=== PATIENT | male | born 1970 | race Caucasian/White ===

== ENCOUNTER 2021-03-29 17:48 | Emergency (ER) | payer BC, SELFPAY ==
[2021-03-29 18:07] VITALS: BP 132/75; PULSE 87; RESP 16; TEMP 36.2; O2SAT 98
--- NOTE | 2021-03-29 19:36 | ED.URI ---
HPI - URI/Sore Throat General Chief Complaint: Upper Respiratory Infection Stated Complaint: Sore Throat History of Present Illness HPI Narrative: This a 50-year-old male comes in complaining of having a 2-week history of sore throat states that he has had of some cough and congestion . Patient states he may need to be tested for SARS and strep patient denies any fever nausea vomiting and/or diarrhea Related Data Home Medications Medication Instructions Recorded Confirmed sertraline 50 mg PO DAILY 03/29/21 03/29/21 Allergies Allergy/AdvReac Type Severity Reaction Status Date / Time Penicillins Allergy Unknown WAS CHILD Verified 03/29/21 18:36 Review of Systems Review of Systems: CONSTITUTIONAL: Denies fever, chills, or sweats. EYES: Denies visual changes, redness, or discharge. ENT: Denies rhinorrhea, congestion, reports sore throat, or otalgia. CARDIOVASCULAR:Denies chest pain, palpitations, or edema. RESPIRATORY: Denies cough or dyspnea. GASTROINTESTINAL: Denies abdominal pain, nausea, vomiting, or diarrhea. GENITOURINARY: Denies dysuria or hematuria. SKIN:[Denies rash or itching. MUSCULOSKELETAL:Denies back pain, joint pain, or myalgia. NEUROLOGIC: Denies headache, numbness, or weakness. PSYCHIATRIC:Denies anxiety or depression PMF Family History Family History (Updated 06/23/15 @ 15:03 by DOCTOR UNKNOWN) Mother Family history of malignant neoplasm Father Acute myocardial infarction Social History Social History Alcohol intake: current Comments At time as signature, I have reviewed and agree with nursing past medical, social, surgical and family history. Please see nursing chart for further information. There is no relevant family history pertinent to the presenting complaint. Exam Narrative: GENERAL:Well-appearing, well-nourished, and in no acute distress. HEAD:Normocephalic, atraumatic. EYES: PERRLA and EOMI. ENT: Nares clear, no rhinorrhea or epistaxis. Mucous membranes moist. Pharyngeal erythema NECK: Supple. CHEST: Clear to auscultation. No respiratory distress. HEART: Regular rate and rhythm. ABDOMEN: Soft, nontender, nondistended, normal active bowel sounds. EXTREMITIES: Normal range of motion. No edema. SKIN: Warm, dry, no rash. NEURO: No focal deficits. Alert and oriented x3. Negative SARS test negative strep test patient chews daily Course [employer]/PA Physician Supervision Patient requesting antibiotics at this time and will fill antibiotics as needed Vital Signs Vital signs: Vital Signs Temperature 97.2 F L 03/29/21 18:07 Pulse Rate 87 03/29/21 18:07 Respiratory Rate 16 03/29/21 18:07 Blood Pressure 132/75 03/29/21 18:07 Pulse Oximetry 98 03/29/21 18:07 Temperature 97.2 F L 03/29/21 18:07 Pulse Rate 87 03/29/21 18:07 Respiratory Rate 16 03/29/21 18:07 Blood Pressure 132/75 03/29/21 18:07 Pulse Oximetry 98 03/29/21 18:07 MDM - URI/Sore Throat Lab Data Labs: Lab Results 03/29/21 Range/Units 19:00 POC SARS CoV-2 Ag Negative (Negative) Strep Screen Presumptive Negative *(Reference Range: Negative)* Discharge Plan Discharge Clinical Impression: Upper respiratory infection Qualifiers: URI type: unspecified viral URI Qualified Code(s): J06.9 - Acute upper respiratory infection, unspecified Pharyngitis Qualifiers: Pharyngitis/tonsillitis etiology: unspecified etiology Qualified Code(s): J02.9 - Acute pharyngitis, unspecified Patient Disposition: Home, Self-Care Condition: Stable Instructions: Antibiotic Form, Pharyngitis (ED) Additional Instructions: your strep test today was negative. A throat culture will be sent to the laboratory for further testing. IF the test is positive, you will receive a phone call within 48 hours and an appropriate antibiotic will be initiated at that time. You will not receive a phone call if the test is negativ
== END 2021-03-29 19:42 | disposition home or self-care (01) ==
PROVIDERS: Emergency Provider Nurse Practitioner Family; PCP Emergency Medicine
DX: J06.9 Acute upper respiratory infection, unspecified (principal); J02.9 Acute pharyngitis, unspecified; Z20.822 Contact with and (suspected) exposure to COVID-19
CPT/HCPCS: 87081; 87426; 87880; 99213; C9803; G0463

== ENCOUNTER 2022-07-31 15:13 | Emergency (ER) | payer BC, SELFPAY ==
[2022-07-31 15:51] VITALS: BP 124/76; PULSE 85; RESP 20; TEMP 36.2; O2SAT 99
--- NOTE | 2022-07-31 16:37 | ED.NAVMDI ---
HPI - Nausea/Vomiting/Diarrhea General Chief complaint: Nausea/Vomiting/Diarrhea Stated complaint: Abdominal Pain/Nausea/ Vomiting/Diarrhea Source: patient Mode of arrival: ambulatory Limitations: no limitations History of Present Illness HPI Narrative: 52-year-old male presents to [facility] with complaints of nausea vomiting and diarrhea for the past 36 hours. Patient reports he feels that his symptoms are improving. Patient reports that he was able to keep water down earlier today without vomiting. Patient reports that his son recently started with similar symptoms. Patient reports that he has been taking [id number] Pepto-Bismol with minimal relief. MD elicited complaint: nausea, vomiting and diarrhea Onset (ago): day(s) (1-2) Associated nausea: Yes Associated abdominal pain: No Location of pain: none Exacerbating factors: eating Relieving factors: none Associated symptoms: denies other symptoms Related Data Home Medications Medication Instructions Recorded Confirmed sertraline 50 mg tablet 50 mg PO DAILY 03/29/21 03/29/21 Allergies Allergy/AdvReac Type Severity Reaction Status Date / Time Penicillins Allergy Unknown WAS CHILD Verified 03/29/21 18:36 Review of Systems Constitutional: Constitutional: Denies chills, Denies fatigue and Denies fever(s) ENT: Denies dizziness, Denies nasal congestion and Denies sore throat Cardiovascular: Cardiovascular: Denies chest pain Respiratory: Respiratory: Denies cough, Denies dyspnea and Denies wheezing Gastrointestinal: Gastrointestinal: Denies abdominal pain, Reports diarrhea, Reports nausea and Reports vomiting Genitourinary: Genitourinary: Denies dysuria Integumentary/Breasts: Skin/Breast: Denies rash Neurologic: Denies vertigo, Denies dizziness and Denies syncope Allergic/Immunologic: Allergic/Immunologic: Denies lip swelling, Denies throat swelling and Denies tongue swelling PMFSH Family History Family History Mother Family history of malignant neoplasm Father Acute myocardial infarction Social History Social History Alcohol intake: current Comments At time of signature, I agree with nursing past medical, surgical, social and family history. There is no relevant family history pertinent to the presenting complaint. Exam Const: General: healthy appearing, no acute distress and alert Nutritional Appearance: well nourished Orientation/consciousness: patient oriented x3 Limitations: no limitations HENMT: Head: normal to inspection Mouth: Yes lip normal and Yes moist mucous membranes Throat: posterior oropharynx normal and uvula midline Eyes: Conjunctivae: conjunctivae normal Neck: Neck: normal visual inspection Resp: Effort & Inspection: normal respiratory effort and not labored Auscultation: clear to auscultation bilaterally, no crackles, no rales, no rhonchi and no wheezes Cardio: Rate: regular rate Rhythm: regular rhythm Heart sounds: no murmurs GI: Inspection: non-distended GI Palp: Yes Soft to palpation, No Tenderness to palpation present (GI), No Guarding due to palpation present (GI) and No Rigid due to palpation Skin: General skin exam: normal color Rashes: no rashes Neuro: General: patient oriented x3 Speech: normal speech Psych: Affect: normal affect Attitude: cooperative Course Course Level of Care: Express Care Visit Vital Signs Vital signs: Vital Signs Temperature 36.2 C L 07/31/22 15:51 Pulse Rate 85 07/31/22 15:51 Respiratory Rate 20 07/31/22 15:51 Blood Pressure 124/76 07/31/22 15:51 Pulse Oximetry 99 07/31/22 15:51 Oxygen Delivery Room Air 07/31/22 15:51 Temperature 36.2 C L 07/31/22 15:51 Pulse Rate 85 07/31/22 15:51 Respiratory Rate 20 07/31/22 15:51 Blood Pressure 124/76 07/31/22 15:51 Pulse Oximetry 99 07/31/22 15:51 Oxygen Delivery Room Air
== END 2022-07-31 16:48 | disposition home or self-care (01) ==
PROVIDERS: Emergency Provider Nurse Practitioner Family; PCP Emergency Medicine
DX: B34.9 Viral infection, unspecified (principal)
CPT/HCPCS: 99213; G0463

== ENCOUNTER 2024-09-28 13:14 | Emergency (ER) | payer BC, SELFPAY ==
--- OUTSIDE RECORDS SUMMARY | 2024-09-28 13:17 | XMS_ITS | Clinical Summary ---
Author Organization [facility] Address [address] [place] [address] Care Team Providers Care Rod Greaser Name Role Phone Trey Goff MD Primary Care Provider Allergies Active Allergy Reactions Criticality Noted Date Comments Penicillins Rash Medium 03/13/2019 Medications sertraline (ZOLOFT) 50 mg tablet Take 1 tablet by mouth daily 01/08/[address] (VOLTAREN) 75 mg EC tablet TAKE 1 TABLET BY MOUTH TWICE DAILY 60 tablet 05/15/2019 Active Active Problems No known active problems Surgical History Surgery Date Site/Laterality Comments SKIN SURGERY Family History Medical History Relation Name Comments Cancer Mother Relation Name Status Comments Mother Social History Tobacco Use Types Packs/Day Years Used Date Smoking Tobacco: Former Personal Safety Answer Date Recorded Getting School Help Needed Not on file 10/27 Sex and Gender Information Value Date Recorded Sex Assigned at Not on file Legal Sex Male 12:13 PM CDT Gender Identity Not on file Sexual Orientation Not on file Obstetrics History Last Filed Vital Signs Vital Sign Reading Time Taken Comments Blood Pressure 126/87 03/13/2019 2:44 PM CDT Pulse 78 03/13/2019 2:44 PM CDT Temperature - - Respiratory Rate - - Oxygen Saturation - - Inhaled Oxygen Concentration - - Weight 108.7 kg (239 lb 9.6 oz) 03/13/2019 2:44 PM CDT Height 182.9 cm (6') 03/13/2019 2:44 PM CDT Body Mass Index 32.5 03/13/2019 2:44 PM CDT Plan of Treatment Not on file Insurance [employer] [place] [employer] [place] Care Teams Rod Greaser Relationship Specialty Start Date End Date Trey Goff MD [address] [place] [address] PCP - General Family Medicine 01/08/19
--- OUTSIDE RECORDS SUMMARY | 2024-09-28 13:17 | XMS_ITS | Referral Summary ---
Author Organization [facility] Address [address] [place] [address] Care Team Providers Care Lime Supervisor Name Role Phone Trey Goff MD Primary Care Provider Allergies Active Allergy Reactions Criticality Noted Date Comments Penicillins Rash Medium 03/13/2019 Medications sertraline (ZOLOFT) 50 mg tablet Take 1 tablet by mouth daily 01/08/[address] (VOLTAREN) 75 mg EC tablet TAKE 1 TABLET BY MOUTH TWICE DAILY 60 tablet 05/15/2019 Active Active Problems No known active problems Social History Tobacco Use Types Packs/Day Years Used Date Smoking Tobacco: Former Personal Safety Answer Date Recorded Getting School Help Needed Not on file 10/27 Sex and Gender Information Value Date Recorded Sex Assigned at Not on file Legal Sex Male 12:13 PM CDT Gender Identity Not on file Sexual Orientation Not on file Last Filed Vital Signs Vital Sign Reading [...] Plan of Treatment Not on file [place] [employer] [place] Care Teams Lime Supervisor Relationship Specialty Start Date End Date Trey Goff MD [address] [place] [address] PCP - General Family Medicine 01/08/19
--- OUTSIDE RECORDS SUMMARY | 2024-09-28 13:17 | XMS_ITS | Continuity of Care Document ---
Author Organization [facility] Address [address] [place] [address] Phone Care Team Providers Care Merchandising Representative Name Role Phone Miguel Arcos DO Unavailable Unavailable Advance Directives Directive Yes / No Effective Date File Name No Information Encounters Encounter Description Practice Location Reason(s) For Visit Diagnoses Date Provider Providers Copied on Encounter [facility], [address], [place], [place], [id number], [place] tel:[phone] [facility] No Information Isrrael Cody. [address] [place], [address], [place]. tel: [phone] Family History Family Member Type Diagnosis Age At Onset No Information Payers Payer name Insurance type Covered constitution party ID Authoriza tion(s) No Information Social History Type Description Quantity Date Captured Comments Sex Male Smoking Status No Information Chief Complaint And Reason For Visit No Information Reason For Referral Reason For Referral No Information History Of Present Illness Encounter Date Complaint History Of Prese nt Illness No Information Functional Status Date Functional Assessmen t No Information Instructions Date Instruction Additional Infor mation No Information Assessments Type Assessment Date No Information Patient Care Teams Name Effective Dates (start - stop) Status Members No Information
--- OUTSIDE RECORDS SUMMARY | 2024-09-28 13:17 | XMS_ITS | Data Portability ---
Author Organization [place] [facility], Main Office Address [address] [place] [address] Care Team Providers Care Sulfide Head Operator Name Role Phone COLETTE EVELINA Primary Care Provider EVELINA ALVARENGA Referring Provider [phone] Assessment Encounter Date Assessment Date Assessment LastModified by Organization Details LastModified Time 02/06/2024 02/06/2024 53-year-old male presents for follow-up of his bilateral knee arthritis. He was treated with a course of anti-inflammatori es and physical therapy. He feels like therapy actually made it worse and aggravated things. His left side is currently worse than the right, rated as 6/10. He is still taking meloxicam. He has varus alignment of his left knee. Tenderness palpation over the medial joint line as well as over the patellofemoral joint. Range motion 0-100 and 30 with crepitus. Neurovascular intact. We discussed that the next step would be to consider cortisone injection. He wanted to proceed and tolerated that well. He just wanted to do it for his left side. We will him follow up as needed. We discussed that he can get the shots every 3-4 months as needed, and after that we can consider doing a gel injection. He is in agreement with the plan. Not available 02/07/2024 19:29:47 05/21/2024 05/21/2024 53-year-old male presents for follow-up of his left knee osteoarthritis. We previously treated him conservatively with anti-inflammatori es, physical therapy, and cortisone injection. The injection gave him very temporary relief, but now he has recurrence of pain. He currently rates pain as 8/10. He has limited walking. He wants to consider surgery for joint arthroplasty He has varus alignment of his left knee. Tenderness palpation over the medial joint line as well as over the patellofemoral joint. Range motion 0-130 with crepitus. Neurovascular intact. X-rays demonstrates medial and patellofemoral arthritis He has failed conservative management for his knee osteoarthritis and wants to proceed with TKA. He currently chews tobacco and we discussed smoking cessation and the need for him to be off nicotine prior to doing surgery. We will order a nicotine test for him and he can take it 30 days after he quits. After he gets a negative result, we will see him back in the office to discuss surgery and give him his preoperative info. He is in agreement with the plan. Not available 05/23/2024 10:23:07 07/16/2024 07/16/2024 54-year-old male presents for follow-up of his left knee. He has a history of knee osteoarthritis failing conservative management. We had previously discussed surgery for total knee arthroplasty, but he was still on nicotine that point. He has since quit smoking and has a negative nicotine test. He is here for his preoperative appointment. He currently rates pain 7/10. varus alignment of his left knee. Tenderness palpation over the medial joint line as well as over the patellofemoral joint. Range motion 0-130 with crepitus. Neurovascular intact. We will proceed with TKA given his osteoarthritis failing conservative management. Risks, benefits, and alternatives to surgery were discussed with the patient. Risks include but are not limited to pain, stiffness, infection, bleeding, blood clot, injury to other structures including nerves or blood vessels, need for future surgery, and anesthesia risks. We discussed the goal of surgery is to improve symptoms but there is no guarantee of improvement and it is possible the patient's condition is worse after surgery. Patient agreed and would like to proceed. Not available 07/16/2024 16:26:24 09/19/2024 09/19/2024 54-year-old patient presents today for 1st postop follow-up after left knee total arthroplasty on 09/09/[address] Colmenares. He states he is doing well overall, 5/10 pain. Still taking Dowell as needed as well as naproxen and aspirin. He is using crutches but states when he is at home he uses a walker. He has not started physical therapy. Physical exam: Antalgic gait. Incision is clean dry and intact without signs and symptoms of infection. Bruising and edema noted around knee. Some tenderness with palpitation. Range of motion 5-90. Sensation intact throughout. We discussed incisional care and when to call the office if there are changes. We will order physical therapy to help with range of motion and gait training. We discussed starting to wean off of assisted devices as he feels more comfortable. We will renew his Dowell script. He can continue to take the anti-inflammatori es, ice, and elevate. We will see him back in 4 weeks with x-rays to check his progress. He may call before then with any issues. Not available 09/19/2024 12:32:44 09/26/2024 09/26/2024 54-year-old patient presents today for incisional recheck after left knee told her arthroscopy on 09/09/2024. At his appointment last week we removed his Aquacel dressing. He states that a few days later he started to develop a rash around the incision where the adhesive was touching his skin. He presents today to have the rash looked at. He also states he does not like taking the hydrocodone and would like to try ibuprofen. Physical exam: Erythema and dry skin where adhesive was located on the dressing. It does not touch the incision site. It is not painful with touch. Patient states it is not itching or causing discomfort. We discussed that he is having a reaction to the adhesive in the dressing. It is possible it will get worse before it gets better and that blisters or flaking skin may develop. He can take an antihistamine as needed. We do not recommend applying antihistamine creams near the incision. We discussed when to call the office if it continues to get worse. For pain we will order 800mg Ibuprofen. We will see him back October 15 for recheck, or sooner if needed. Not available 09/26/2024 11:11:48 Plan of Treatment Reminders Order Date Submit Date Provider Last Modified By Organization Details Last Modified Time Details Appointments Post-Op 10 2024 10:20A M Yoandy Colmenares MD Not available Not available Not available Lab cotinine, quantitat josé luis, urine 2023 024 [email or web address] [facility] ([facility] [address] [place], [address], 06/25/2024 08:17:01 Referral physical therapist referral - Please contact patient to schedule 2024 025 [facility], [address] [place], [address], 09/23/2024 16:40:47 Procedures injection /aspirati on joint/bur sa (PROC) 2023 024 [email or web address] In-Office Order, Internal Use Only DO Not Attach Compendium DO Not Attach Compendium, Do Not Delete/merge, [id number] 02/06/2024 14:12:46 Surgeries None recorded. Imaging None recorded. Medication Orders ibuprofen 800 mg tablet 2024 [id number], [address], [place], [id number], 09/26/2024 09:12:01 hydrocodo ne 5 mg-acetam inophen 325 mg tablet 2024 025 [id number], [address], [place], [id number], 09/19/2024 12:33:43 Kenalog 10 mg/mL suspensio n for injection [address] [id number], [address] , [place], [place], [id number], 02/07/2024 14:42:54 Marcaine (PF) 0.5 % (5 mg/mL) injection solution [address] [id number], [address] , [place], [place], [id number], 02/07/2024 14:42:54 Patient TargetsNo targets recorded. Patient InstructionsNo instructions recorded. Reason for Referral Physical Therapist Referral for Osteoarthritis of left knee joint Please contact patient to schedule Referring Physician: Daisy Mock, Orthopedic Surgery, Encounter Date: 09/19/2024 Results Created Date Observation Date Name Description Value Unit Range Abnormal Flag Note LastModifiedBy Organization Detail LastModifiedTime 09/09/1909/09/2024 XR, knee, 1 or 2 view No observ ation record ed. [email or web address] [address] [place], [address], 09/09/2024 17:29:58 Result Notes None recorded. Problems Name Problem SNOMED Code Status Onset Date Resolution Date Notes Provider Name and Address Organization Details Recorded Time Pain of bilateral knee joints 7769488879193 04 Active 2023 PACO [place], [place] [facility] [facility] [employer] 4 10:32:21 Pain of right knee joint 5542268054514 00 Active 2023 Rohini moreno [employer] [facility] 4 14:11:30 Pain of left knee joint 4021777931451 07 Active 2023 Rohini moreno, [employer] [facility] 4 14:11:35 Nicotine dependence 21695569 Active 2023 Rohini moreno, [employer] [facility] [employer] 4 16:04:06 Osteoarthri tis of left knee joint 3184662852807 09 Active 2024 PACO Franklin, [employer] [facility] 5 09:29:39 Problem Notes None recorded. Procedures Surgical History Date Name Laterality Status Provider Name and Address Organization Details Recorded Time 5 Knee Replacement completed PACO Franklin [employer] 09/18/2024 08:44:16 4 Ortho - Cortisone Injection completed Yoandy Colmenares MD [address] [facility], [facility] [address], [place], [address], [employer] 02/07/2024 19:29:58 Imaging Results Imaging Date Name Status LastModified by Organiz ation Details LastModified Time 09/09/2024 XR, knee, 1 or 2 view completed [email or web address] [facility] [address], [place], [address], 09/09/2024 17:29:58 Procedure Notes None recorded. Medical Equipment None Reported. Allergies Allergen ID Allergen Name Allergen Category Reaction Reaction Severity Criticality Documentation Date Start Date Code Code System Note Provider Name and Address Organization Details Recorded Time [address]23 penicilla mine medicatio n Not available Not available Not available 12/19/2023 7975 RxNorm PACO [place], [place] [facility] 10:30:30 Medications Name Sig Start Date Stop Date Status Note LastModified by Organization Details LastModified Time cyclobenzap rine 10 mg tablet TAKE 1 TABLET BY MOUTH EVERY 8 HOURS NEEDED FOR MUSCLE SPASM active Not Available Not Available No t Available ibuprofen 800 mg tablet Take 1 tablet 3 times a day by oral route. 2024 active Not Available Not Available Not Avai lable ofloxacin 0.3 % eye drops INSTILL 2 DROPS IN THE LEFT EYE FOUR TIMES DAILY FOR 7 DAYS 12/18 completed Not Available Not Available Not Available hydrocodone 5 mg-acetamin ophen 325 mg tablet TAKE 1 TABLET BY MOUTH EVERY 6 HOURS active Not Available Not Available No t Available senna 8.6 mg tablet TAKE 2 TABLETS BY MOUTH EVERY NIGHT AT BEDTIME active Not Available Not Available No t Available meloxicam 15 mg tablet TAKE 1 TABLET BY MOUTH EVERY DAY active Not Available Not Available No t Available naproxen 250 mg tablet TAKE 2 TABLETS BY MOUTH EVERY 12 HOURS active Not Available Not Available No t Available tramadol 50 mg tablet TAKE 1 TABLET BY MOUTH EVERY 4 HOURS NEEDED FOR PAIN active Not Available Not Available No t Available Kenalog 10 mg/mL suspension for injection in office 2023 active ND: 0003- 0494- 20 Not Available Not Available Not Available BD Luer-Shahla Syringe 3 mL 25 gauge x 1 USE WITH TESTOSTER ONE INJECTION EVERY 2 WEEKS active Not Available Not Available No t Available gabapentin 300 mg capsule TAKE 1 CAPSULE BY MOUTH EVERY 12 HOURS active Not Available Not Available No t Available aspirin 81 mg chewable tablet CHEW AND SWALLOW ONE TABLET TWICE DAILY active Not Available Not Available No t Available testosteron e cypionate 200 mg/mL intramuscul ar oil INJECT 1 ML IN THE MUSCLE EVERY 2 WEEKS active Not Available Not Available No t Available ondansetron 4 mg disintegrat ing tablet DISSOLVE 2 TABLETS ON THE TONGUE EVERY 8 HOURS NEEDED FOR NAUSEA active Not Available Not Available No t Available sertraline 50 mg tablet TAKE 1 TABLET BY MOUTH EVERY DAY active Not Available Not Available No t Available Marcaine (PF) 0.5 % (5 mg/mL) injection solution in office 2023 active Not Available Not Available Not Avai labbrenda Vitals Date Recorded Body height Body mass index (BMI) Body weight Provider Name and Address Organization Details Last Updated DateTime 02/06/2024 182.88 cm 29.6 kg/m2 07847.14 g Aysha Pardo PROTECTION ENGINEER [employer] [facility] [employer] 02/06/2024 13:57:53 Date Recorded Body height Body mass index (BMI) Body weight Provider Name and Address Organization Details Last Updated DateTime 05/21/2024 182.88 cm 29.8 kg/m2 66821.32 g Aysha Edvin, [facility] [employer] [facility] [employer] [facility] 05/21/2024 15:34:23 Date Recorded Body height Body mass index (BMI) Body weight Pain severity - 0-10 verbal numeric rating [Score] - Reported Provider Name and Address Organization Details Last Updated DateTime 07/16/2024 182.88 cm 29.8 kg/m2 86990.32 g 7 Deanna Mullins [facility] [employer] [facility] [employer] [facility] 07/16/2024 15:34:54 Date Recorded Body height Body mass index (BMI) Body weight Provider Name and Address Organization Details Last Updated DateTime 09/19/2024 182.88 cm 29.8 kg/m2 96939.32 g Deanna Mullins [facility] [employer] [facility] 09/19/2024 09:29:13 Date Recorded Body height Body mass index (BMI) Body weight Provider Name and Address Organization Details Last Updated DateTime 09/26/2024 182.88 cm 29.8 kg/m2 54592.32 g Aysha Edvin, PROTECTION ENGINEER [employer] [facility] [employer] [facility] 09/26/2024 09:00:41 Social History Question Answer Notes LastModified by Organizat ion Details LastModified Time What Is Your Level Of Alcohol Consumption? None [email or web address] Information not available 12/19/2023 What Was The Date Of Your Most Recent Tobacco Screening? 12/19/2023 [email or web address] Information not available 12/19/2023 Do You Or Have You Ever Used Any Other Forms Of Tobacco Or Nicotine? Yes Chew [email or web address] Information not available 12/19/2023 Sex: Unknown Functional Status None recorded. Mental Status None recorded. Family History Relationship Description Onset Age of this Age Resolved Age Notes LastModified by Organization Details LastModified Time Mother Family history of malignant neoplasm Not available 2023 10:31:00 Father Heart disease Not available 2023 10:31:13 Medical History No medical history recorded. Past Encounters Encounter ID Performer Location Encounter Start Date Encounter Closed Date Diagnosis/Indication Diagnosis SNOMED-CT Code Diagnosis ICD10 Code Diagnosis Note [id number] Yoandy Colmenares MD [facility] [address] [place] [address] 12/19/2023 10:12:02 12/19/2023 10:54:29 Pain of bilateral knee joints 8487840090 88967 M25.050 [id number] Yoandy Colmenares MD [facility] [address] [place] [address] 02/06/2024 13:51:20 02/06/2024 14:13:01 Pain of right knee joint 2040088057 45966 M25.561 Pain of le ft knee joint 2037643168 10816 M25.221 [id number] Yoandy Colmenares MD [facility] [address] [place] [address] 05/21/2024 15:17:41 05/21/2024 16:06:50 Pain of left knee joint 1873984667 19689 M25.562 Nicotine dependence 5629 4008 F17.417 [id number] Yoandy Colmenares MD [facility] [address] [place] [address] 07/16/2024 15:32:16 07/16/2024 15:56:50 Pain of left knee joint 0955478941 31119 M25.576 [id number] Daisy Mock, PHOTOGRAPHIC ENGINEER [facility] [address] [place] [address] 09/19/2024 09:27:46 09/19/2024 09:53:20 Pain of left knee joint 4276596487 67047 M25.562 Osteoarthr itis of left knee joint 8025851953 72329 M17.12 [id number] Daisy Saleemfs, PHOTOGRAPHIC ENGINEER [facility] [address] [place] [address] 09/26/2024 08:58:00 09/26/2024 09:12:38 Osteoarthritis of left knee joint 9678778751 27231 M17.12 Pain of le ft knee joint 0664173128 66041 M25.562 Postoperative visit 1836 54372 Z48.89 Health Concerns Section Related Observation LastModified by Organization Detai ls LastModified Time None Recorded Concern Status LastModified by Organization Details LastModified Time None Recorded Advance Directives Directive None Recorded Payers Encounter Date Sequence Insurance Name Policy Number Policy Gonzales Covered Member ID Gonzales Member ID Guarantor Name 02/06/2024 1 [place] [id number] Jacques W Jose [id number] Jacques W Jose 05/21/2024 1 [place] [id number] Jacques W Jose [id number] Jacques W Jose 07/16/2024 1 [place] [id number] Jacques W Jose [id number] Jacques W Jose 09/19/2024 1 [place] [id number] Jacques W Jose [id number] Jacques W Jose 09/26/2024 1 [place] [id number] Jacques W Jose [id number] Jacques W Jose
--- OUTSIDE RECORDS SUMMARY | 2024-09-28 13:17 | XMS_ITS | Continuity of Care Document ---
Author Organization [facility] Address [address] [place] [address] [place] [address] Phone Care Team Providers Care Director Safety Name Role Phone Trey Goff MD Unavailable Unavailable Allergies, Adverse Reactions, Alerts Substance Reaction Status Criticality Penicillins Unknown Active No Information Medications Medication Instructions Dosage Effective Dates (start - stop) Status Comments meloxicam 15 mg tablet take 1 tablet by oral route every day 15 MG - Active Depo-Testosterone 200 mg/mL intramuscular oil inject 1 milliliter by intramuscular route every 2 weeks 200 MG - Active Zoloft 50 mg tablet take 1 tablet by ora l route every day 50 MG - Active syringe with needle 1 mL 25 gauge x 1 use with testosterone injection - Active Procedures Procedure Date OFFICE/OUTPATIENT VISIT, EST OFFICE/OUTPATIENT VISIT, EST OFFICE/OUTPATIENT VISIT, EST OFFICE/OUTPATIENT VISIT, EST PREV VISIT, EST, AGE 40-64 OFFICE/OUTPATIENT VISIT, EST OFFICE/OUTPATIENT VISIT, EST OFFICE/OUTPATIENT VISIT, EST OFFICE/OUTPATIENT VISIT, EST OFFICE/OUTPATIENT VISIT, EST PREV VISIT, EST, AGE 40-64 OFFICE/OUTPATIENT VISIT, EST OFFICE/OUTPATIENT VISIT, EST OFFICE/OUTPATIENT VISIT, EST OFFICE/OUTPATIENT VISIT, EST OFFICE/OUTPATIENT VISIT, EST PREV VISIT, EST, AGE 40-64 OFFICE/OUTPATIENT VISIT, EST PREV VISIT, EST, AGE 40-64 OFFICE/OUTPATIENT VISIT, EST OFFICE/OUTPATIENT VISIT, EST OFFICE/OUTPATIENT VISIT, EST PREV VISIT, EST, AGE 40-64 OFFICE/OUTPATIENT VISIT, EST OFFICE/OUTPATIENT VISIT, EST PREV VISIT, NEW, AGE 40-64 OFFICE/OUTPATIENT VISIT, NEW Advance Directives Directive Yes / No Effective Date File Name No Information Encounters Encounter Description Practice Location Reason(s) For Visit Diagnoses Date Provider Providers Copied on Encounter OFFICE/OUTPA TIENT VISIT, [facility], [address], [address], [place] tel:[phone] [facility] knee pain1 (chief complaint) low T (chief complaint) low calcium (chief complaint) HLP (chief complaint) iron (chief complaint) Primary osteoarthritis of left kneeDisorder of iron metabolism, unspecifiedTesticul ar hypogonadismMixed hyperlipidemiaHypoc alcemia 4 Denver Franco [address] [facility] [place] [address] , [place]. tel:[phone] Referring Provider: [place]ito [place], [address]. tel:[phone] OFFICE/OUTPA TIENT VISIT, [facility], [address], [address], [place] tel:[phone] [facility] knee pain1 (chief complaint) anxiety1 (chief complaint) t (chief complaint) polycythem ia1 (chief complaint) Primary osteoarthritis of left kneeSecondary polycythemiaTesticu lar hypogonadismGeneral ized Anxiety Disorder 4 Denver Franco [address], [address] , [place]. tel:[phone] Referring Provider: [place], [address]. tel:[phone] OFFICE/OUTPA TIENT VISIT, EST [facility], [address], [place], [place], [address], [place] tel:[phone] [facility] knee pain1 (chief complaint) Primary osteoarthritis of left knee Apr-2 4 Denver Yang. [address], [place], [place], [address] , [place]. tel:[phone] Referring Provider: Alfredito Lang [address], [place], [place], [address]. tel:[phone] OFFICE/OUTPA TIENT VISIT, EST [facility], [address], [place], [place], [address], [place] tel:[phone] [facility] anxiety1 (chief complaint) T (chief complaint) poly (chief complaint) Generalized Anxiety DisorderTesticular hypogonadismSeconda ry polycythemiaAbnorma l weight loss Nov-0 4 Denver Yang. [address], [place], [place], [address] , [place]. tel:[phone] Referring Provider: Alfredito Lang [address], [place], [place], [address]. tel:[phone] PREV VISIT, EST, AGE 40-64 [facility], [address], [place], [place], [address], [place] tel:[phone] [facility] Medicine T (chief complaint) Encounter for general adult medical exam w abnormal findingsTesticular hypogonadismMixed hyperlipidemiaGener alized Anxiety DisorderObstructive sleep apnea hypopnea 3 Denver Yang. [address], [place], [place], [address] , [place]. tel:[phone] Referring Provider: Alfredito Lang [address], [place], [place], [address]. tel:[phone] OFFICE/OUTPA TIENT VISIT, EST [facility], [address], [place], [place], [address], [place] tel:[phone] [facility] T (chief complaint) Testicular hypogonadismDecreas ed libido 3 Denver Franco [address], [place], [place], [address] , [place]. tel:[phone] Referring Provider: Alfredito Lang [address], [place], [place], [address]. tel:[phone] OFFICE/OUTPA TIENT VISIT, [facility], [address], [place], [place], [address], [place] tel:[phone] [facility] HLP (chief complaint) low T (chief complaint) GI (chief complaint) weight loss1 (chief complaint) Testicular hypogonadismAbnorma l weight lossMixed hyperlipidemiaChang e in bowel habit 3 Denver Franco [address], [place], [place], [address] , [place]. tel:[phone] Referring Provider: Alfredito Lang [address], [place], [place], [address]. tel:[phone] OFFICE/OUTPA TIENT VISIT, [facility], [address], [place], [place], [address], [place] tel:[phone] [facility] HLP (chief complaint) anxiety1 (chief complaint) weight loss1 (chief complaint) fatigue1 (chief complaint) Mixed hyperlipidemiaGener alized Anxiety DisorderAbnormal weight lossFatigueEncounte r for screening for malignant neoplasm of colon 3 Denver Franco [address], [place], [place], [address] , [place]. tel:[phone] Referring Provider: Alfredito Lang [address], [place], [place], [address]. tel:[phone] OFFICE/OUTPA TIENT VISIT, [facility], [address], [place], [place], [address], [place] tel:[phone] [facility] HLP (chief complaint) HLP (chief complaint) polyuria,1 (chief complaint) Mixed hyperlipidemiaLiver diseasePolyuriaEnco unter for screening for malignant neoplasm of colon 2 Denver Glaser [address], [place], [place], [address] , [place]. tel:[phone] Referring Provider: Alfredito Lang [address], [place], [place], [address]. tel:[phone] PREV VISIT, EST, AGE 40-64 [facility], [address], [place], [place], [address], [place] tel:[phone] [facility] physical (chief complaint) Encounter for general adult medical exam w abnormal findingsGeneralized Anxiety DisorderLiver diseaseMixed hyperlipidemia 2 Denver Franco [address], [place], [place], [address] , [place]. tel:[phone] Referring Provider: Alfredito Lang [address], [place], [place], [address]. tel:[phone] OFFICE/OUTPA TIENT VISIT, [facility], [address], [place], [place], [address], [place] tel:[phone] [facility] anxiety1 (chief complaint) palpitatio n1 (chief complaint) LFT (chief complaint) colo (chief complaint) Liver diseaseGeneralized Anxiety DisorderPalpitation sEncounter for screening for malignant neoplasm of colon 1 [address], [place], [place], [address] , [place]. tel:[phone] Referring Provider: Alfredito Lang [address], [place], [place], [address]. tel:[phone] OFFICE/OUTPA TIENT VISIT, EST [facility], [address], [place], [place], [address], [place] tel:[phone] [facility] palpitatio n1 (chief complaint) HLP (chief complaint) LFT1 (chief complaint) HyperlipidemiaPalpi tationsLiver diseaseEncounter for screening for malignant neoplasm of colon 1 [address], [place], [place], [address] , [place]. tel:[phone] Referring Provider: Alfredito Lang [address], [place], [place], [address]. tel:[phone] OFFICE/OUTPA TIENT VISIT, [facility], [address], [place], [place], [address], [place] tel:[phone] [facility] Medicine HLP (chief complaint) palpitatio n1 (chief complaint) anxiety1 (chief complaint) Chest painPalpitationsHyp erlipidemiaGenerali zed Anxiety DisorderEncounter for screening for malignant neoplasm of colon Avi- 1 Denver Franco [address], [place], [place], [address] , [place]. [phone] Referring Provider: Alfredito Lang [facility] A, [place], [place], [address]. tel:[phone] OFFICE/OUTPA TIENT VISIT, [facility], [address], [place], [place], [address], [place] tel:[phone] [facility] HLP (chief complaint) glucose1 (chief complaint) anxiety1 (chief complaint) HyperlipidemiaHyper glycemiaGeneralized Anxiety DisorderEncounter for screening for malignant neoplasm of colon Jul- 0 Denver Glaser [address], [place], [place], [address] , [place]. [phone] Referring Provider: Alfredito Lang [address], [place], [place], [address]. tel:[phone] PREV VISIT, EST, AGE 40-64 [facility], [address], [place], [place], [address], [place] tel:[phone] [facility] Physical (chief complaint) Encounter for general adult medical exam w abnormal findingsHyperlipide miaHyperglycemiaSle ep apneaGeneralized Anxiety Disorder Sep-0 0 Denver Franco [address], [place], [place], [address] , [place]. tel:[phone] Referring Provider: Alfredito Lang [address], [place], [place], [address]. tel:[phone] PREV VISIT, EST, AGE 40-64 [facility], [address], [place], [place], [address], [place] tel:[phone] [facility] Medicine Physical (chief complaint) Encounter for general adult medical exam w abnormal findingsHyperlipide miaAbnormal finding on cytological exam of urinePain in left kneeGeneralized Anxiety DisorderSleep apnea 9 Denver Yang. [address], [place], [place], [address] , [place]. tel:[phone] Referring Provider: Alfredito Lang [address], [place], [place], [address]. tel:[phone] OFFICE/OUTPA TIENT VISIT, [facility], [address], [place], [place], [address], [place] tel:[phone] [facility] abnormal UA (chief complaint) Abnormal finding on cytological exam of urine Nov-3 0 9 Denver Yang. [address], [place], [place], [address] , [place]. tel:[phone] Referring Provider: Alfredito Lang [address], [place], [place], [address]. tel:[phone] OFFICE/OUTPA TIENT VISIT, [facility], [address], [place], [place], [address], [place] tel:[phone] [facility] back pain1 (chief complaint) HLP (chief complaint) glucose1 (chief complaint) liver1 (chief complaint) HyperlipidemiaLiver diseaseHyperglycemi aLumbago with sciatica, right side Fe 9 Denver Yang. [address], [place], [place], [address] , [place]. tel:[phone] Referring Provider: Alfredito Lang [address], [place], [place], [address]. tel:[phone] PREV VISIT, EST, AGE 40-64 [facility], [address], [place], [place], [address], [phone] [facility] Medicine Physical (chief complaint) Encounter for general adult medical exam w abnormal findingsHyperlipide miaGeneralized Anxiety DisorderSleep apneaLiver diseaseBody mass index (BMI) 34.0-34.9, adult 8 Denver Yang. [address], [place], [place], [address] , [place]. [phone] Referring Provider: Alfredito Lang [address], [place], [place], [address]. tel:[phone] OFFICE/OUTPA TIENT VISIT, [facility], [address], [place], [place], [address], [place] [phone] [facility] HLP (chief complaint) anxiety1 (chief complaint) LFT (chief complaint) libido1 (chief complaint) HyperlipidemiaLiver diseaseDecreased libidoHyperglycemia 7 Denver Yang. [address], [place], [place], [address] , [place]. [phone] Referring Provider: Alfredito Lang [address], [place], [place], [address]. tel:[phone] PREV VISIT, NEW, AGE 40-64 [facility], [address], [place], [place], [address], [place] tel:[phone] [facility] Medicine Physical (chief complaint) Encounter for general adult medical exam w abnormal findingsChest painHyperlipidemiaG eneralized Anxiety DisorderDecreased libido 7 Denver Yang. [address], [place], [place], [address] , [place]. [phone] Family History Family Member Type Diagnosis Age At Onset Sister Problem (finding) Sister Problem (finding) down syndrome Mother Problem (finding) lung CA Father Problem (finding) Coronary artery disease (Cause Of ) 62 Mother Problem (finding) Payers Payer name Insurance type Covered libertarian ID Vaishali tijorge(s) No Information Social History Type Description Quantity Date Captured Comments Alcohol Use Details No Caffeine Use Details Unknown Tobacco Use Status Chews tobacco Smoking Status Current every day smoker 2023 Sex Male Vital Signs Date / Time: Height Weight BMI Pulse Rate Blood Pressure Temperature Respiratory Rate Body Surface Area Head Circumference BMI percentile Pulse Ox Inhaled Ox 5:05 PM 72.00 in 249.00 lbs 33.7 7 kg/m eter (2) 86 /min 128/86 mm[Hg] 97.2 F 16 /min Chief Complaint And Reason For Visit From encounter dated '07/24/2024 17:00'. knee pain1 (chief complaint). Description: Pt has chronic left knee pain Pt has severe chondromalacia .Pt is seeing ortho and he will have left knee replacement soon Pt wants mobic refilled Pt needs surgical clearance. low T (chief complaint). Description: Pt has low T. Pt is on testosterone replacement. His total T level is normal and his free T level is high. Pt states that he did not wait for two weeks for the depo testosterone shot before his lab work. He feels more energy with testosterone replacement low calcium (chief complaint). Description: Pt has low calcium. Pt denies any bone issue. HLP (chief complaint). Description: Pt has HLP. Pt is working on diet. iron (chief complaint). Description: his iron level is slightly high on lab. His hemoglobin is ok. Plan Of Treatment Date Type Action Status Goal Special diet education compl eted Goal Special diet education compl eted Goal Special diet education compl eted Goal Prescribed dietary intake co mpleted Referral Ordered: MATTIE HUERTA -[facility] : Orthopaedic Surgery (related to Primary osteoarthritis of left knee) ordered Referral Referred To: MATTIE HUERTA [address], [place], [id number] Ordered: Referrals: [facility] : Orthopaedic Surgery. MATTIE HUERTA. Evaluate and treat ordered Avi-08-2021 Referral Ordered: CARDIOVASCULAR STRESS TEST ordered Referral Ordered: COLONOSCOPY AND BIOPSY ordered Referral Ordered: Reza Sanchez -[facility] : Orthopaedic Surgery (related to Pain in left knee) ordered Referral Referred To: Reza Sanchez [address] [facility] [address] [facility] [address] [place], [place] [id number] Ordered: Referrals: [facility] : Orthopaedic Surgery. Reza Sanchez. Evaluate and treat ordered Referral Ordered: MRI JNT OF LWR EXTRE W/O DYE Left knee ordered Referral Ordered: GRISEL GUNDERSON -[facility] : Surgery (related to Abnormal finding on cytological exam of urine) ordered Referral Referred To: GRISEL GUNDERSON [address] [place], [place], [phone] Ordered: Referrals: [facility] : Surgery. GRISEL GUNDERSON. Evaluate and treat ordered Referral Ordered: Physical Therapy (related to Lumbago with sciatica, right side) ordered Referral Ordered: LUMBAR XRAY AP AND LAT ONLY ordered Referral Referred To: Physical Therapy Ordered: Referrals: Physical Therapy. Evaluate and treat ordered Referral Ordered: MITCH RUGGIERO (related to Chest pain) ordered Referral Referred To: MITCH RUGGIERO [id number] [facility] [address] [place], [place], [phone] Ordered: Referrals: MITCH RUGGIERO. Evaluate and treat ordered History Of Present Illness Encounter Date Complaint History Of Prese nt Illness low calcium Pt has low calci um. Pt denies any bone issue. HLP Pt has HLP. Pt i s working on diet. iron his iron level i s slightly high on lab. His hemoglobin is ok. knee pain1 Pt has chronic l eft knee pain Pt has severe chondromalacia .Pt is seeing ortho and he will have left knee replacement soon Pt wants mobic refilled Pt needs surgical clearance. low T Pt has low T. Pt is on testosterone replacement. His total T level is normal and his free T level is high. Pt states that he did not wait for two weeks for the depo testosterone shot before his lab work. He feels more energy with testosterone replacement knee pain1 Pt c/o chronic l eft knee pain Pt is seeing ortho and he will have left knee replacement soon due to severe arthritis. anxiety1 Pt has chronic a nxiety and depression Pt doing ok with zoloft Pt denies any suicidal or homicidal thought Pt denies any crying spells polycythemia1 Pt has mild high HCT Pt does have sleep apnea but he does not want to use cpap t Pt has low T .Pt is on testosterone replacement and he feels much more energy with more stamina and he notices more muscle mass with exercise and he actually lost some weight due to fat loss. Pt denies any testicular pain, atrophy or nodule. Pt feels more libido as well Pt denies any ED. he denies any urinary symptoms knee pain1 Pt c/o bilateral knee pain for 4 years, worse on left side. Pt denies any injury Pt has been noticing worsening pain left knee for the past two years with some swelling. Pt denies any knee redness or warmth Pt had knee x ray done several years ago which showed bone on bone left knee. Pt denies any calf pain anxiety1 Pt has chronic a nxiety and depression Pt takes zoloft and doing ok Pt denies any suicidal or homicidal thought .pt denies any crying spells. T Pt has low T .Pt is on testosterone replacement and he feels much more energy with more stamina and he notices more muscle mass with exercise and he actually lost some weight due to fat loss. Pt denies any testicular pain, atrophy or nodule. Pt feels more libido as well Pt denies any ED. he denies any urinary symptoms poly Pt has mild poly cythemia on lab. Pt is on T replacement. His PSA is ok T Pt has borderlin e low T x twice. Pt does have low libido Pt denies any testicular pain, atrophy or nodule. Pt denies any ED. Pt feels cloudy brained. Pt feels losing muscles. Pt started testosterone replacement since 3 months ago and he feels much better. He notices improving mental clarity, libido and overall energy level. Pt denies any urinary symptoms Pt also has anxiety and depression and he is doing well with zoloft .Pt denies any suicidal or homicidal thought Pt denies any crying spells. Pt also has HLP. pt is working on diet. He has mild sleep apnea but he does not want to use cpap. Pt overall feels well T Pt has borderlin e low T x twice. Pt does have low libido Pt denies any testicular pain, atrophy or nodule. Pt denies any ED. Pt feels cloudy brained. Pt feels losing muscles. Pt is interested in testosterone replacement. GI Pt denies any ch sea of bowel or GI issue. his colonguard is negative weight loss1 Pt has been diet and exercising and he has been losing weight Pt denies any nausea, vomiting, early satiety loss of appetite, GERD. abd pain, change of bowel, blood in stool. Pt is had negative colonguard. low T Pt has borderlin e low T Pt does have low libido Pt denies any testicular pain, atrophy or nodule. Pt denies any ED HLP Pt has mild HLP, but overall number is improving with diet HLP Pt is noncomplia nt and he never started crestor. Pt has been diet and exercising and he lost some weight Pt denies any nausea, vomiting, early satiety, GERd, change of bowel, blood in stool, etc anxiety1 Pt has chronic a nxiety and depression Pt takes zoloft and doing ok Pt denies any suicidal or homicidal thought Pt denies any crying spells weight loss1 Pt has been diet and exercising and he has been losing weight Pt denies any nausea, vomiting, early satiety loss of appetite, GERD. abd pain, change of bowel, blood in stool. Pt is noncompliant with colonoscopy fatigue1 pt c/o chronic f atigue Pt denies any dizziness, sob or headache. Pt has history of sleep apnea. Pt does not want to use cpap HLP Pt denies any ab d pain or jaundice. His LFT and hep panel all normal HLP Pt has HLP Pt to ok crestor in the past but he was noncompliant. He does have family history of CAD. Pt did see cardiology and he had negative stress test and calcium score testing. Pt denies any chest pain polyuria,1 Pt has chronic p olyuria. Pt denies any urgency or dysuria or any difficulty with urination. pt notices frequent urination all day. Pt does have tendency to drink a lot of water throughout the day. physical Pt needs annual physical. Pt has chronic anxiety and depression Pt takes zoloft and doing ok. Pt needs zoloft refilled. Pt is noncompliant with lab work and colonoscopy Pt denies any GI issue .pt has been diet and exercising and he lost some weight. Pt denies any other complaints palpitation1 Pt had negative holter and cardiac work up and he stopped drinking diet soda and his palpitation resolved. anxiety1 Pt has chronic a nxiety and depression Pt takes zoloft and doing ok Pt denies any suicidal or homicidal thought Pt denies any crying spells. Pt doing well with zoloft LFT Pt has high LFT Pt denies any abd pain or jaundice .Pt rarely drinks alcohol colo Pt still has not set p colonoscopy yet Pt denies any GI issue HLP Pt has high TG P t was on statin for a while but he has not on it for two months. His lipid is better and his TG is borderline high. he has been working on diet and exercise palpitation1 Pt has intermitt ent cardiac palpitation for several months Pt denies any chest pain. pt denies any trigger factor. Pt had ETT nuclear stress test last week which was completely normal. Pt also had essentially normal calcium score test. Pt is currently wearing the holter monitor x 2 weeks. Pt also went to [facility] over the weekend for palpitation and he had negative EKG and negative troponin testing. Pt only noticed one episode of palpitation since the stress test. Pt denies any GERD. he saw Dr. Cohen from [facility] and was started on holter. he denies any sob LFT1 Pt has mild high LFT .Pt denies any abd pain or jaundice .Pt has been takig pre workout to try to work out. Pt rarely drinks alcohol HLP Pt has HLP Pt on ly took crestor for 4 weeks and he stopped taking it due to noncompliance. Pt denies any myalgia while on crestor. pt states that he has been diet and exercising palpitation1 Pt c/o acute ons et of exertional related palpitation on and off for the past two wees. Pt also notices mild left side chest pressure and pain intermittently, Pt denies any GERD. diaphoresis, sob, Pt denies any acute symptoms. Pt denies any radiation of pain to left arm or neck area. Pt states that the palpitation occurs randomly throughout the day but seems worse with activity. anxiety1 Pt has chronic a nxiety and depression Pt takes zoloft and doing ok Pt denies any suicidal or homicidal thought Pt denies any crying spells HLP Pt has HLP, whic h has been chronic. Pt failed diet and exercise on his own. Pt does have family history of CAD. Pt denies any chest pain glucose1 Pt has borderlin e high glucose Pt denies any polyuria, polydipsia anxiety1 Pt has chronic a nxiety and depression Pt takes zoloft and doing ok. Pt denies any suicidal or homicidal thought. Pt denies any crying spells. Physical Pt needs annual physical Pt has chronic anxiety and depression Pt takes zoloft and doing ok pt denies any suicidal or homicidal thought Pt denies any crying spells. Pt has sleep apnea but he does not want to use cpap pt denies any snoring or any fatigue Pt denies any difficulty with breathing at night. Pt has HLp Pt is working on low fat and low carb diet .Pt overall feels well. Pt denies any new complaints Physical Pt needs annual physical pt has chronic anxiety and depression. Pt doing ok with zoloft. Pt denies any suicidal or homicidal thought. Pt denies any crying spells, Pt had abnormal urine cytology recently but UA is normal. Pt denies any UTI symptoms. Pt has mild high glucose and HLP. pt denies any polyuria, polydipsia Pt is working on low fat diet. Pt c/o chronic left knee pain for years. Pt had several injury when he was young and torn ligament but he never had surgery. Pt has intermittent pain but two days ago, he was sitting on toilet and while trying to get up, he felt a pop left knee. he notices unstable left knee and he felt left patella pain when he tries to bend his left knee. Pt notices mild swelling Pt denies any calf pain Pt denies any redness or warmth. Pt has been taking ibuprofen which helps. Pt states that he feels that his left knee keeps wanting to give out. Pt snores and he denies any fatigue. Pt has sleep apnea but he does not want CPAP. 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 Pt did work physical recently pt had urine cytology done which showed atypical cells. pt denies any UTI symptoms Pt denies blood in urine. Pt denies any flank pain. HLP Pt has HLP. Pt h as high tC and TG. Pt is not on any diet. Pt does eat a lot of fast food glucose1 Pt has very mild borderline high glucose Pt denies any polyuria, polydipsia. liver1 Pt has history o f mildly elevated LFT. Pt denies any abd pain or jaundice. He does not drink alcohol. His LFT was ok recently. he does not have hepatitis back pain1 Pt picked a tire up 3 days ago and he notices low back pain since then. Pt notices mild right sciatica. Pt notices numbness right upper thigh. Pt denies any loss of bowel or bladder control. Pt has 5/10 pain. pt does have intermittent low back pain for several years. Physical Pt needs annual physical Pt has chronic anxiety and depression. Pt takes zoloft and doing ok. Pt did not like wellbutrin. Pt also had negative cardiac work up pt no longer has chest pain. Pt does have mild sleep apnea. Pt denies any fatigue. pt denies any snoring. Pt does not want CPAP. Pt denies any other complaints anxiety1 Pt has chronic a nxiety and depression. Pt takes zoloft and wellbutrin and his mood is better. Pt denies any suicidal or homicidal thought. LFT pt has mild high LFT Pt denies any abd pain. Pt does not drink alcohol Pt does nto take excessive tylenol libido1 Pt has low libid o and has ED. pt denies any testicular pain or nodule. Pt states that wellbutin has not helped him yet HLP Pt told me he is on lipiotr. not lovastatin. Pt states that he feels some leg muscle and elbow pain with lipitor. pt stopped taking lipitor for several weeks and the pain resolved. His TG is slightly samreen Physical Pt needs annual physical. Pt has HLP Pt takes lovastatin due to HLP. Pt has chronic anxiety and irritable and mild depression. Pt takes zoloft for one year. Pt states that it is doing ok but he has been having ED and low libido with zoloft. pt c/o intermittent left side sharp chest pain on and off for 2 months Pt states that it is not related to physical activity. Pt denies any diaphoresis or radiation of pain down to left arm. Pt denies any SOB Instructions Date Instruction Additional Infor yvonne Special diet education Related t o Body mass index (BMI) 32.0-32.9, adult Weight management Related to Enc ounter for general adult medical exam w abnormal findings Increase physical activity Relat ed to Abnormal finding on cytological exam of urine Special diet education Related t o Body mass index (BMI) 32.0-32.9, adult Weight management Related to Abn ormal finding on cytological exam of urine Special diet education Related t o Body mass index (BMI) 33.0-33.9, adult Increase activity. Related to Hy perlipidemia Follow a low sodium diet. Relate d to Hyperlipidemia Prescribed dietary intake Relate d to Body mass index (BMI) 34.0-34.9, adult Prescribed Activity and Exercise Education Related to Dietary Surveillance and Counseling Prescribed Diet Educ ation/Lifestyle Education Regarding Diet Related to Dietary Surveillance and Counseling Prescribed Activity and Exercise Education Related to Dietary Surveillance and Counseling Prescribed Diet Educ ation/Lifestyle Education Regarding Diet Related to Dietary Surveillance and Counseling Assessments Type Assessment Date assessment Primary osteoarthritis of left k nee assessment Disorder of iron metabolism, uns pecified assessment Testicular hypogonadism 024 assessment Mixed hyperlipidemia assessment Hypocalcemia Mental Status Date Cognitive Assessment Orientation - [place] ed to time, place, person, situation.
[2024-09-28 13:19] VITALS: BP 168/88; PULSE 106; RESP 20; TEMP 36.5; O2SAT 97
--- NOTE | 2024-09-28 14:17 | ED_ITS ---
HPI - Abdominal Pain General Chief Complaint: Abdominal Pain Stated Complaint: stomach discomfort Time Seen by Provider: 09/28/24 14:05 Source: patient Mode of arrival: ambulatory Limitations: no limitations History of Present Illness HPI narrative: This is a 54-year-old male who presents to the ED for chief complaint of stomach discomfort over the past 7-10 days. Patient states that about 16 days ago he had knee surgery. Since then he has been taking several medications for postop pain including gabapentin, Flexeril, Vicodin, naproxen. States that he was taking 500 naproxen b.i.d. every day after surgery. States that his bowel movements have been regular. Describes a burning-type pain in the upper abdomen. States that he has dark brown stools but no black or tarry stools. States this sometimes the pain does get relieved with eating. Denies vomiting, fevers, chills, back pain, urinary symptoms, chest pain, shortness of breath, leg swelling. Related Data Home Medications ?Medication ?Instructions ?Recorded ?Confirmed ?Last Taken ?Type sertraline 50 mg tablet 50 mg PO DAILY 03/29/21 03/29/21 Unknown History Allergies Allergy/AdvReac Type Severity Reaction Status Date / Time Penicillins Allergy Unknown WAS CHILD Verified 03/29/21 18:36 Review of Systems 2 Review of Systems: All systems as dictated in [facility] Family History Family History Mother Family history of malignant neoplasm Father Acute myocardial infarction Social History Social History Alcohol intake: current Exam 2 Narrative: GENERAL: Well-appearing, well-nourished, and in no acute distress. HEAD: Normocephalic, atraumatic. EYES: PERRLA and EOMI. ENT: Nares clear, no rhinorrhea or epistaxis. Mucous membranes moist. Oropharynx without tonsillar hypertrophy exudate or other lesions. NECK: Supple. No adenopathy or masses. CHEST: No respiratory distress. Clear to auscultation. No wheezes rales or rhonchi HEART: Regular rate and rhythm. No murmur heard. Normal peripheral pulses. ABDOMEN: Soft, nontender, nondistended, normal active bowel sounds. MSK: Normal range of motion. No edema. SKIN: Warm, dry, no rash. NEURO: Alert and oriented x4. No focal deficits. PSYCH: Normal mood and affect. Course Vital Signs Vital signs: Vital Signs Temperature 97.7 F 09/28/24 13:19 Pulse Rate 106 H 09/28/24 13:19 Respiratory Rate 20 09/28/24 13:19 Blood Pressure 168/88 H 09/28/24 13:19 Pulse Oximetry 97 09/28/24 13:19 Temperature 97.8 F 09/28/24 15:50 Pulse Rate 86 09/28/24 15:50 Respiratory Rate 16 09/28/24 15:50 Blood Pressure 144/97 H 09/28/24 15:50 Pulse Oximetry 99 09/28/24 15:50 MDM - Abdominal Pain MDM Narrative Medical decision making narrative: This is a 54-year-old male who presents to the ED for chief complaint of epigastric abdominal pain. Vitals are normal. Exam remarkable for the above. No focal area of tenderness on exam. No evidence of acute abdomen on exam. Lab work is grossly unremarkable. No indication for CT imaging today. Presentation most likely consistent with gastritis. He was given Bentyl, fluids, Pepcid and GI cocktail with good relief of symptoms. Rx for omeprazole given. Patient will be discharged in stable condition. Supportive measures discussed and return precautions given. Patient is understanding and agreeable with plan for discharge with PCP follow-up. Lab Data 09/28/24 14:51 09/28/24 14:50 Labs: Lab Results 09/28/24 09/28/24 09/28/24 Range/Units 14:50 14:51 14:56 WBC 7.7 (4.5-10.0) K/mm3 RBC 5.09 (4.6-6.20) M/mm3 Hgb 14.3 (14.0-18.0) g/dL Hct 43.8 (42.0-52.0) % MCV 86.1 (80-100) fl MCH 28.1 (26-34) pg MCHC 32.6 (32-36) g/dl RDW 13.6 (11.5-14.5) % Plt Count 347 (150-375) k/mm3 MPV 10.2 (7.4-10.4) fl Immature Gran % (Auto) 0.7 H (0-0.5) % Neut % (Auto) 54.5 (45.5-73.1) % Lymph % (Auto) 30.8 (18.3-44.2) % [place] % (Auto) 10.5 H (2.6-8.5) % Eos % (Auto) 3.1 (0-4.4) % Baso % (Auto) 0.4 (0.2-1.2) % Lymph # (Auto) 2.37 (0.9-3.2) K/mm3 [place] # (Auto) 0.8 H (0.1-0.6) K/mm3 Eos # (Auto) 0.2 (0-0.3) K/mm3 Baso # (Auto) 0.0 (0.0-0.1) K/mm3 Abs Immat Gran (auto) 0.05 H (0.00-0.031) K/mm3 Absolute Neuts (auto) 4.2 (1.3-6.7) K/mm3 Absolute Nucleated RBC 0.000 (0.0-0.012) K/mm3 Nucleated RBC % 0.0 (0.0-0.2) % Sodium 139 (137-145) mmol/L Potassium 4.7 (3.4-5.0) mmol/L Chloride 107 (98-107) mmol/L Carbon Dioxide 22 (22-30) mmol/L Anion Gap 10 (4-12) mmol/L BUN 16 (9-20) mg/dL Creatinine 0.71 (0.7-1.3) mg/dL Estim Creat Clear Calc Not Reportable Estimated GFR > 60 (59 - ) Glucose 100 (65-110) mg/dL Calcium 8.8 (8.4-10.2) mg/dL Total Bilirubin 0.4 (0.2-1.3) mg/dL AST 25 (17-59) U/L ALT 39 (6-50) U/L Alkaline Phosphatase 102 (38-126) U/L Total Protein 7.0 (6.3-8.2) g/dL Albumin 3.9 (3.5-5.1) g/dL Lipase 98 (23-300) U/L Urine Color Yellow (Yellow) Urine Appearance Clear (Clear) Urine pH 5.5 (5.0-9.0) Ur Specific [place] 1.027 (1.001-1.035) Urine Protein Negative (Negative) mg/dL Urine Glucose (UA) Negative (Negative) mg/dL Urine Ketones Negative (Negative) mg/dL Ur Blood (Man) Negative (Negative) Urine Nitrate Negative (Negative) Urine Bilirubin Negative (Negative) Urine Urobilinogen 0.2 (<2.0) mg/dL Leukocyte Esterase Rfl Negative (Negative) BENJI/UL Discharge Plan Discharge Clinical Impression: Gastritis Patient Disposition: Home, Self-Care Condition: Stable Instructions: Antibiotic Form Additional Instructions: Your exam and workup today are reassuring overall. This is probably gastritis and related to inflammation of the stomach. Please discontinue NSAIDs for the next few days and switch to other pain medications as prescribed prior surgeon. Take omeprazole daily to reduce the stomach acid. If you have any new or worsening symptoms please return to the ER for further evaluation. Patient Language: Citizen [place] Prescriptions: New omeprazole 20 mg capsule,delayed release(DR/EC) 20 mg PO DAILY Qty: 30 0RF No Action sertraline 50 mg tablet 50 mg PO DAILY cetirizine [Zyrtec] 10 mg tablet 10 mg PO DAILY PRN (Reason: allergy symptoms) Qty: 30 0RF ondansetron 4 mg tablet,disintegrating 4 mg PO Q6H PRN (Reason: nausea and vomiting) Qty: 20 0RF Follow-up/Referrals: Trey Goff MD [Primary Care Provider] - Time of Disposition: 15:15
--- OUTSIDE RECORDS SUMMARY | 2024-09-28 14:20 | XMS_ITS | Continuity of Care Document ---
Author Organization [facility] Address [address] [place] [address] [place] [address] Phone Care Team Providers Care Certified Registered Locksmith Name Role Phone Trey Goff MD Unavailable [...] every 2 weeks 200 MG - Active syringe with needle 1 mL 25 gauge x 1 use with testosterone injection - Active Zoloft 50 mg tablet take 1 tablet by ora l route every day 50 MG - Active Procedures Procedure Date OFFICE/OUTPATIENT VISIT, [...] Providers Copied on Encounter OFFICE/OUTPA TIENT VISIT, [facility], [address] [place], [address], [place] tel:[phone] [facility] knee pain1 (chief complaint) low T (chief complaint) low calcium (chief complaint) HLP (chief complaint) iron (chief complaint) Primary osteoarthritis of left kneeDisorder of iron metabolism, unspecifiedTesticul ar hypogonadismMixed hyperlipidemiaHypoc alcemia 4 Denver Franco [address] [facility] [place], [address] , [place]. tel:[phone] Referring Provider: Alfredito [place], [address]. tel:[phone] OFFICE/OUTPA TIENT VISIT, [facility], [address], [address], [place] tel:[phone] [facility] knee pain1 (chief complaint) anxiety1 (chief complaint) t (chief complaint) polycythem ia1 (chief complaint) Primary osteoarthritis of left kneeSecondary polycythemiaTesticu lar hypogonadismGeneral ized Anxiety Disorder 4 Denver Franco [address] [place], [address] , [place]. tel:[phone] Referring Provider: Alfredito [place], [address]. tel:[phone] OFFICE/OUTPA TIENT VISIT, EST [facility], [address], [place], [place], [address], [place] tel:[phone] [facility] knee pain1 (chief complaint) Primary osteoarthritis of left knee Apr-2 4 Denver Yang. [address], [place], [place], [address] , [place]. tel:[phone] Referring Provider: Alfredito Lang [address], [place], [place], [address]. tel:[phone] OFFICE/OUTPA TIENT VISIT, EST [facility], [address], [place], [place], [address], [place] tel:[phone] [facility] anxiety1 (chief complaint) T (chief complaint) poly (chief complaint) Generalized Anxiety DisorderTesticular hypogonadismSeconda ry polycythemiaAbnorma l weight loss Nov-0 4 Denver Yang. [address], [place], [place], [address] , [place]. tel:[phone] Referring Provider: Alfredito Lang [address], [place], [address]. tel:[phone] PREV VISIT, EST, AGE 40-64 [facility], [address], [place], [place], [address], [place] tel:[phone] [facility] Medicine T (chief complaint) Encounter for general adult medical exam w abnormal findingsTesticular hypogonadismMixed hyperlipidemiaGener alized Anxiety DisorderObstructive sleep apnea hypopnea 3 Denver Yang. [address], [place], [place], [address] , [place]. tel:[phone] Referring Provider: Alfredito Lang [address], [place], [place], [address]. tel:[phone] OFFICE/OUTPA TIENT VISIT, EST [facility], [address], [place], [place], [address], [place] tel:[phone] [facility] T (chief complaint) Testicular hypogonadismDecreas ed libido 3 Denver Franco [address], [place], [place], [address] , [place]. tel:[phone] Referring Provider: Alfredito Lang [address], [place], [address]. tel:[phone] OFFICE/OUTPA TIENT VISIT, [facility], [address], [place], [place], [address], [place] tel:[phone] [facility] HLP (chief complaint) low T (chief complaint) GI (chief complaint) weight loss1 (chief complaint) Testicular hypogonadismAbnorma l weight lossMixed hyperlipidemiaChang e in bowel habit 3 Denver Franco [address], [place], [place], [address] , [place]. tel:[phone] Referring Provider: Alfredito Lang [address], [place], [place], [address]. tel:[phone] OFFICE/OUTPA TIENT VISIT, [facility], [address], [place], [place], [address], [place] tel:[phone] [facility] HLP (chief complaint) anxiety1 (chief complaint) weight loss1 (chief complaint) fatigue1 (chief complaint) Mixed hyperlipidemiaGener alized Anxiety DisorderAbnormal weight lossFatigueEncounte r for screening for malignant neoplasm of colon 3 Denver Franco [address], [place], [place], [address] , [place]. tel:[phone] Referring Provider: Alfredito Lang [address], [place], [place], [address]. tel:[phone] OFFICE/OUTPA TIENT VISIT, [facility], [address], [place], [place], [address], [place] tel:[phone] [facility] HLP (chief complaint) HLP (chief complaint) polyuria,1 (chief complaint) Mixed hyperlipidemiaLiver diseasePolyuriaEnco unter for screening for malignant neoplasm of colon 2 Denver Glaser [address], [place], [address] , [place]. tel:[phone] Referring Provider: Alfredito Lang [address], [place], [place], [address]. tel:[phone] PREV VISIT, EST, AGE 40-64 [facility], [address], [place], [place], [address], [place] tel:[phone] [facility] physical (chief complaint) Encounter for general adult medical exam w abnormal findingsGeneralized Anxiety DisorderLiver diseaseMixed hyperlipidemia 2 Denver Franco [address], [place], [place], [address] , [place]. tel:[phone] Referring Provider: Alfredito Lang [address], [place], [address]. tel:[phone] OFFICE/OUTPA TIENT VISIT, [facility], [address], [place], [address], [place] tel:[phone] [facility] anxiety1 (chief complaint) palpitatio n1 (chief complaint) LFT (chief complaint) colo (chief complaint) Liver diseaseGeneralized Anxiety DisorderPalpitation sEncounter for screening for malignant neoplasm of colon [address] Maria[address], [place], [place], [address] , [place]. tel:[phone] Referring Provider: Alfredito Lang [address], [place], [address]. tel:[phone] OFFICE/OUTPA TIENT VISIT, EST [facility], [address], [place], [address], [place] tel:[phone] [facility] palpitatio n1 (chief complaint) HLP (chief complaint) LFT1 (chief complaint) HyperlipidemiaPalpi tationsLiver diseaseEncounter for screening for malignant neoplasm of colon 1 [address] Maria, [address], [place], [address] , [place]. tel:[phone] Referring Provider: Alfredito Lang [address], [place], [address]. tel:[phone] OFFICE/OUTPA TIENT VISIT, [facility], [address], [place], [place], [address], [place] tel:[phone] [facility] HLP (chief complaint) palpitatio n1 (chief complaint) anxiety1 (chief complaint) Chest painPalpitationsHyp erlipidemiaGenerali zed Anxiety DisorderEncounter for screening for malignant neoplasm of colon Avi- 1 Denver Franco [address], [place], [place], [address] , [place]. [phone] Referring Provider: Alfredito Lang [facility], [place], [place], [address]. tel:[phone] OFFICE/OUTPA TIENT VISIT, [facility], [address], [place], [place], [address], [place] tel:[phone] [facility] HLP (chief complaint) glucose1 (chief complaint) anxiety1 (chief complaint) HyperlipidemiaHyper glycemiaGeneralized Anxiety DisorderEncounter for screening for malignant neoplasm of colon Jul- 0 Denver Glaser [address], [place], [address] , [place]. [phone] Referring Provider: Alfredito Lang [address], [place], [place], [address]. tel:[phone] PREV VISIT, EST, AGE 40-64 [facility], [address], [place], [address], [place] tel:[phone] [facility] Physical (chief complaint) Encounter for general adult medical exam w abnormal findingsHyperlipide miaHyperglycemiaSle ep apneaGeneralized Anxiety Disorder Sep-0 0 Denver Franco [address], [place], [place], [address] , [place]. tel:[phone] Referring Provider: Alfredito Lang [address], [place], [place], [address]. tel:[phone] PREV VISIT, EST, AGE 40-64 [facility], [address], [place], [place], [address], [place] tel:[phone] [facility] Physical (chief complaint) Encounter for general adult medical exam w abnormal findingsHyperlipide miaAbnormal finding on cytological exam of urinePain in left kneeGeneralized Anxiety DisorderSleep apnea 9 Denver Yang. [address], [place], [address] , [place]. tel:[phone] Referring Provider: Alfredito Lang [address], [place], [place], [address]. tel:[phone] OFFICE/OUTPA TIENT VISIT, [facility], [address], [place], [place], [address], [place] tel:[phone] [facility] abnormal UA (chief complaint) Abnormal finding on cytological exam of urine Nov-3 0 9 Denver Yang. [address], [place], [place], [address] , [place]. tel:[phone] Referring Provider: Alfredito Lang [address], [place], [address]. tel:[phone] OFFICE/OUTPA TIENT VISIT, [facility], [address], [place], [address], [place] tel:[phone] [facility] back pain1 (chief complaint) HLP (chief complaint) glucose1 (chief complaint) liver1 (chief complaint) HyperlipidemiaLiver diseaseHyperglycemi aLumbago with sciatica, right side Fe 9 Denver Yang. [address], [place], [address] , [place]. tel:[phone] Referring Provider: Alfredito Lang [address], [place], [place], [address]. tel:[phone] PREV VISIT, EST, AGE 40-64 [facility], [address], [place], [place], [address], [phone] [facility] Physical (chief complaint) Encounter for general adult medical exam w abnormal findingsHyperlipide miaGeneralized Anxiety DisorderSleep apneaLiver diseaseBody mass index (BMI) 34.0-34.9, adult 8 Denver Yang. [address], [place], [place], [address] , [place]. [phone] Referring Provider: Alfredito Lang [address], [place], [place], [address]. tel:[phone] OFFICE/OUTPA TIENT VISIT, [facility], [address], [place], [place], [address], [place] [phone] [facility] HLP (chief complaint) anxiety1 (chief complaint) LFT (chief complaint) libido1 (chief complaint) HyperlipidemiaLiver diseaseDecreased libidoHyperglycemia 7 Denver Yang. [address], [place], [place], [address] , [place]. tel:[phone] Referring Provider: Alfredito Lang [address], [place], [place], [address]. tel:[phone] PREV VISIT, NEW, AGE 40-64 [facility], [address], [place], [place], [address], [place] tel:[phone] [facility] Physical (chief complaint) Encounter for general adult medical exam w abnormal findingsChest painHyperlipidemiaG eneralized Anxiety DisorderDecreased libido 7 Denver Yang. [address], [place], [place], [address] , [place]. tel:[phone] Family History Family Member Type Diagnosis Age At Onset Sister Problem (finding) Sister Problem (finding) down syndrome Mother Problem (finding) lung CA Father Problem (finding) Coronary artery disease (Cause Of ) 62 Mother Problem (finding) Payers Payer name Insurance type Covered alliance party ID Vaishali tijorge(s) No Information Social History [...] ordered Referral Referred To: MATTIE HUERTA [address] [place], [place], [phone] Ordered: Referrals: Allopathic & Osteopathic Physicians : Orthopaedic Surgery. MATTIE HUERTA. Evaluate and treat ordered Avi-08-2021 Referral Ordered: CARDIOVASCULAR STRESS TEST ordered Referral Ordered: COLONOSCOPY AND BIOPSY ordered Referral Ordered: Reza Sanchez -Allopathic & Osteopathic Physicians : Orthopaedic Surgery (related to Pain in left knee) ordered Referral Referred To: Reza Sanchez [address] [place] [address] [facility] [address] [place], [place] [id number] Ordered: Referrals: Allopathic & Osteopathic Physicians : Orthopaedic Surgery. Reza Sanchez. Evaluate and treat ordered Referral Ordered: MRI JNT OF LWR EXTRE W/O DYE Left knee ordered Referral Ordered: GRISEL GUNDERSON -Allopathic & Osteopathic Physicians : Surgery (related to Abnormal finding on cytological exam of urine) ordered Referral Referred To: GRISEL GUNDERSON [address] [place], [place], [phone] Ordered: Referrals: Allopathic & Osteopathic Physicians : Surgery. GRISEL GUNDERSON. Evaluate and treat ordered Referral Ordered: Physical Therapy (related to Lumbago with sciatica, right side) ordered Referral Ordered: LUMBAR XRAY AP AND LAT ONLY ordered Referral Referred To: Physical Therapy Ordered: Referrals: Physical Therapy. Evaluate and treat ordered Referral Ordered: MITCH RUGGIERO (related to Chest pain) ordered Referral Referred To: MITCH RUGGIERO [id number] [facility] [address] [place], [place], [phone] Ordered: Referrals: MITCH RUGGIERO. Evaluate and treat [...] any GERD. he saw Dr. Cohen from [facility] and was started on holter. he denies [...] general adult medical exam w abnormal findings Special diet education Related t o Body mass index (BMI) 32.0-32.9, adult Increase physical activity Relat ed to Abnormal finding on cytological exam of urine Weight management Related to Abn ormal finding [...] Mental Status Date Cognitive Assessment Orientation - Corona ed to time, place, person, situation.
--- OUTSIDE RECORDS SUMMARY | 2024-09-28 14:20 | XMS_ITS | Clinical Summary ---
Author Organization [facility] Address [address] [place] [address] Care Team Providers Care Sales Engineering Manager Name Role Phone Trey Goff MD Primary [...] Plan of Treatment Not on file Insurance [employer] [place] CHO[place] [employer] CHOICE OOS Care Teams Sales Engineering Manager Relationship Specialty Start Date End Date Trey Goff MD [address] [place] [address] PCP - General Family Medicine 01/08/19
--- OUTSIDE RECORDS SUMMARY | 2024-09-28 14:20 | XMS_ITS | Continuity of Care Document ---
Author Organization [facility] Address [address] [place] [address] Phone Care Team Providers Care Talent Acquisition Director Name Role Phone Miguel Arcos DO Unavailable Unavailable Advance Directives Directive Yes / No Effective Date File Name No Information Encounters Encounter Description Practice Location Reason(s) For Visit Diagnoses Date Provider Providers Copied on Encounter [facility], [address], [place], [place], [address], [place] tel:[phone] [facility] No Information Isrrael Cody. [address] [place], [address], [place]. tel: [phone] Family History Family Member Type Diagnosis Age At Onset No Information Payers Payer name Insurance type Covered green party ID Authoriza tion(s) No Information Social [...]
--- OUTSIDE RECORDS SUMMARY | 2024-09-28 14:20 | XMS_ITS | Referral Summary ---
Author Organization [facility] Address [address] [place] [address] Care Team Providers Care Program Director Substance Abuse Name Role Phone Trey Goff MD Primary Care Provider [phone] Allergies Active Allergy Reactions Criticality Noted Date [...] Plan of Treatment Not on file Insurance [employer] [place] [employer] CHO[place] Care Teams Program Director Substance Abuse Relationship Specialty Start Date End Date Trey Goff MD [address] [place] [address] PCP - General Family Medicine 01/08/19
[2024-09-28] MEDS: DICYCLOMINE HCL INJ 20 MG/2 ML VIAL IM (14:38)
[2024-09-28] MEDS: SODIUM CHLORIDE 0.9% IV 1,000 ML 999 ML IV CONT (14:41)
[2024-09-28] MEDS: FAMOTIDINE 20 MG/2 ML VIAL IV PUSH (14:43)
[2024-09-28] MEDS: BELLADONNA ALK/PHENOB ELIX 10 ML, MAG HYDROX/ALUMINUM HYD/SIMETH 30 ML, LIDOCAINE 2% VI... PO (14:46)
[2024-09-28 14:57] LABS: Basophils Percent Auto 0.4 % (0.2-1.2); Eosinophils Absolute Auto 0.2 K/mm3 (0-0.3); Eosinophils Percent Auto 3.1 % (0-4.4); Hematocrit 43.8 % (42.0-52.0); Hemoglobin 14.3 g/dL (14.0-18.0); Immature Granulocyte Absolute 0.05 K/mm3 (0.00-0.031); Immature Granulocyte Percent A 0.7 % (0-0.5); Lymphocytes Absolute Auto 2.37 K/mm3 (0.9-3.2); Lymphocytes Percent Auto 30.8 % (18.3-44.2); Mean Corpuscular HGB Conc 32.6 g/dl (32-36); Mean Corpuscular Hemoglobin 28.1 pg (26-34); Mean Corpuscular Volume 86.1 fl (80-100); Mean Platelet Volume 10.2 fl (7.4-10.4); Monocytes Absolute Auto 0.8 K/mm3 (0.1-0.6); Monocytes Percent Auto 10.5 % (2.6-8.5); Neutrophils Absolute Auto 4.2 K/mm3 (1.3-6.7); Neutrophils Percent Auto 54.5 % (45.5-73.1); Platelet Count Result 347 k/mm3 (150-375); Red Blood Count 5.09 M/mm3 (4.6-6.20); Red Cell Distribution Width 13.6 % (11.5-14.5); White Blood Count 7.7 K/mm3 (4.5-10.0)
[2024-09-28 15:04] LABS: Add Urine Microscopic? NO; Appearance Urine Clear (Clear); Bilirubin Urine Negative (Negative); Blood Urine Negative (Negative); Color Urine Yellow (Yellow); Glucose Urine UA Negative (Negative); Ketones Urine Negative (Negative); Leukocyte Esterase Ur Negative LEU/UL (Negative); Nitrate Urine Negative (Negative); Protein Urine Negative (Negative); Specific Grav Ur 1.027 (1.001-1.035); Urobilinogen Urine 0.2 mg/dL (<2.0); pH Urine 5.5 (5.0-9.0)
[2024-09-28 15:07] LABS: Alanine Aminotransferase 39 U/L (6-50); Albumin Level 3.9 g/dL (3.5-5.1); Alkaline Phosphatase 102 U/L (38-126); Anion Gap 10 mmol/L (4-12); Aspartate Amino Transferase 25 U/L (17-59); Bilirubin,Total 0.4 mg/dL (0.2-1.3); Blood Urea Nitrogen 16 mg/dL (9-20); Calcium 8.8 mg/dL (8.4-10.2); Carbon Dioxide 22 mmol/L (22-30); Chloride 107 mmol/L (98-107); Estimated Glomerular Filt Rate > 60; Glucose 100 mg/dL (65-110); Lipase 98 U/L (23-300); Potassium 4.7 mmol/L (3.4-5.0); Sodium 139 mmol/L (137-145)
[2024-09-28 15:50] VITALS: BP 144/97; PULSE 86; RESP 16; TEMP 36.6; O2SAT 99
== END 2024-09-28 16:00 | disposition home or self-care (01) ==
PROVIDERS: Emergency Provider Physician Assistant; PCP Emergency Medicine
DX: K29.70 Gastritis, unspecified, without bleeding (principal); Z98.890 Other specified postprocedural states; Z79.899 Other long term (current) drug therapy
CPT/HCPCS: 36415; 80053; 81003; 83690; 85025; 96361; 96372; 96374; 99284; A9270; J0500; J7030